=== PATIENT | female | born 1975 | race Caucasian/White ===

== ENCOUNTER 2022-12-11 19:26 | Emergency (ER) | payer BC ==
[~2022-12-11] VITALS: Ht 162.6 cm; Wt 82.0 kg
[2022-12-11 19:30] VITALS: BP 127/91
== END 2022-12-11 20:18 | disposition home or self-care (01) ==
LOC: ER 19:26
DX: R19.7 Diarrhea, unspecified (principal)
CPT/HCPCS: 99283

== ENCOUNTER 2023-01-22 20:09 | Emergency (ER) | payer BC ==
[~2023-01-22] VITALS: Ht 162.6 cm; Wt 81.8 kg
[2023-01-22 20:14] VITALS: BP 159/65; PULSE 102; RESP 18; TEMP 97.8; O2SAT 95
[2023-01-22 20:38] LABS: BASOPHILS % 0.3 % (0.0-2.0); EOSINOPHILS % 0.9 % (0.0-5.0); HEMATOCRIT. 41.9 % (36.0-48.0); HEMOGLOBIN. 14.2 g/dL (12.0-16.0); LYMPHOCYTES % 14.5 % (20.0-50.0); MEAN CORPUSCULAR HEMOGLOBIN 29.4 pg (28.0-32.0); MEAN CORPUSCULAR VOLUME 86.7 fL (81.0-99.0); MEAN PLATELET VOLUME 9.8 fl (7.4-10.4); MONOCYTES % 9.4 % (2.0-8.0); NEUTROPHILS % 74.9 % (40.0-76.0); PLATELET 204 x1000/uL (130-400); RED BLOOD CELL COUNT 4.83 mill/uL (4.2-5.4); RED CELL DISTRIBUTION WIDTH 14.4 % (11.6-14.6)
[2023-01-22 20:48] LABS: CHLORIDE 109 mEq/L (98-107)
== END 2023-01-22 23:36 | disposition left against medical advice (07) ==
LOC: ER 20:09
DX: Z53.21 Procedure and treatment not carried out due to patient leaving prior to being seen by health care provider (principal)
CPT/HCPCS: 36415; 80053; 85025; 99281